=== PATIENT | female | born 1970 | race Caucasian/White ===

== ENCOUNTER → 2017-10-05 | Outpatient (CLI) | payer OTHER ==
[~2017-10-05] MED LIST: AMPH30TA2 PO; DROS3TAB PO; GADAVIST IV PRN; HYDR-4330 PO; MENT4GEL TOP
--- NOTE | 2017-10-06 14:39 | MAMMOGRAPHY REPORT ---
BREAST MRI OF BOTH BREASTS : 10/05/2017 CLINICAL HISTORY: 47-year-old woman presents for bilateral breast MRI to follow-up of probably benign focus of enhancement in the far posterior lower outer left breast. She also has a personal history of dense breasts and family history of breast cancer. COMPARISON: Comparison is made to exams dated: 07/07/2016 breast MRI, 07/27/2016 ultrasound, and 2016 breast MRI - [facility]. TECHNIQUE: Using a 1.5 Antonette magnet and dedicated breast coil, multisequence axial images were obtain ed through the breasts. After uneventful IV administration of 6.5 mL of Gadavist, dynamic multiphase contrast-enhanced axial images, and sagittal postcontrast were obtained. Temporal subtraction axial images and 3-D MIP images are provided. Everything was then reviewed on a 3-D workstation, [employer]. FINDINGS: Right breast: There is mild to moderate background parenchymal enhancement. There is a dominant 10 m m cyst in the 9:00 middle one third of the right breast. There is a circumscribed and lobulated 7.5 x 3.8 mm mass in the upper inner anterior right breast (axial page 65/116, sagittal page 92/132), gabriella t is isointense on the T2-weighted sequences, demonstrates persistent kinetics, and there are nonenha ncing internal septae identified on the axial image. In retrospect, this was present and is stable d ating back to at least 07/07/2016, and considered benign given long-term stability. No other new iris picious enhancing mass, suspicious non-mass enhancement, architectural distortion or suspicious kinet ics are identified in the right breast. There is no focal skin thickening or nipple retraction. The retromammary fat is intact. No suspicious right axillary lymphadenopathy. Left breast: There is mild to moderate background parenchymal enhancement. A previously observed 4 mm enhancing focus in the lower outer, far posterior left breast is no longer identified or demonstrati ng conspicuous enhancement, confirming benignity. No new suspicious enhancing masses, non-mass enhan cement, architectural distortion or suspicious kinetics are identified in the left breast. There is no focal skin thickening or nipple retraction. The retromammary fat is intact. No suspicious left a xillary lymphadenopathy. IMPRESSION: ACR BI-RADS CATEGORY 2: BENIGN 1. A 4 mm enhancing focus in the lower outer far posterior left breast is no longer identified or de monstrating abnormal enhancement, therefore confirming benignity. 2. Overall, no MRI evidence of malignancy in the breasts. 3. No suspicious axillary adenopathy bilaterally. 4. Based on current available records, screening mammography has not been performed since 2014. It should be noted that mammography remains the gold standard for reducing breast cancer mortality. How ever if mammography is not performed, given the history of dense breasts and family history of breast cancer, would continue annual screening with breast MRI. The patient will receive written notification of the results. Venus Mcintyre M.D. 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
== END | disposition home or self-care (01) ==
LOC: C.MRI 07:06
PROVIDERS: ATTEND Surgery
DX: N60.11 Diffuse cystic mastopathy of right breast (principal); N60.12 Diffuse cystic mastopathy of left breast; Z80.3 Family history of malignant neoplasm of breast

== ENCOUNTER → 2017-11-30 | Outpatient (CLI) | payer OTHER ==
[~2017-11-30] MED LIST changes: -GADAVIST IV PRN
== END | disposition home or self-care (01) ==
LOC: C.LABSPEC 11:47
PROVIDERS: ATTEND Urology
DX: R31.29 Other microscopic hematuria (principal)